=== PATIENT | female | born 1940 | race African-American/Black ===

== ENCOUNTER 2023-04-27 09:49 | Emergency (ER) | payer MEDICARE, SELFPAY ==
--- NOTE | ~2023-04-27 | XR_ITS ---
EXAMINATION: XR CHEST CLINICAL INFORMATION: Productive cough COMPARISON: None available. TECHNIQUE: 2 views of the chest were obtained. FINDINGS: Slight bronchial thickening which may reflect infectious/inflammatory etiology. Elevation the right hemidiaphragm nonspecific. Bibasilar atelectasis. No pneumothorax. Trachea is midline. Cardiac mediastinal silhouette is not enlarged. No large pleural effusion. Degenerative changes of the thoracolumbar spine. Soft tissues are unremarkable. XR/XR chest 2V IMPRESSION: 1. Slight bronchial thickening which may reflect infectious/inflammatory etiology. 2. Elevation the right hemidiaphragm nonspecific. 3. Bibasilar atelectasis.
--- NOTE | 2023-04-27 09:58 | ECG_ITS ---
Test Reason : CHEST PAIN Blood Pressure : / mmHG Vent. Rate : 083 BPM Atrial Rate : 083 BPM P-R Int : 118 ms QRS Dur : 072 ms QT Int : 362 ms P-R-T Axes : 057 -01 024 degrees QTc Int : 425 ms Normal sinus rhythm Normal ECG No previous ECGs available Referred By: Generic ED Physician Electronically Signed By:PABLO SHAFFER MD
[2023-04-27 10:14] VITALS: BP 172/69; PULSE 85; RESP 18; TEMP 36.7; O2SAT 97; BMI 22.5
--- NOTE | 2023-04-27 11:05 | PC.NURSE ---
pt reports having a cold that has not gotten better. pt reports coming home from [place] yesterday where she got medication that has not helped . reports cough and congestion but no pain.
[2023-04-27 12:51] LABS: Influenza A PCR NEGATIVE (Negative); Influenza B PCR NEGATIVE (Negative); Resp Syncy Virus RNA Qual PCR NEGATIVE (Negative); SARS COV2 PCR INHOUSE NEGATIVE (Negative)
--- NOTE | 2023-04-27 13:04 | ED_ITS ---
HPI - General Adult General Chief complaint: General Medical Stated complaint: congested, chest pressure, ear pain Time Seen by Provider: 04/27/23 13:10 Source: patient and RN notes reviewed Mode of arrival: ambulatory Limitations: no limitations History of Present Illness HPI narrative: This is a 82-year-old female, with a history of hypertension, presenting to the emergency department with complaints of sinus congestion, productive cough with yellow sputum, and left ear pain. Patient states that she recently traveled from [place] yesterday. She was seen at a hospital prior to arrival last week and was given an antibiotic. She is unsure what antibiotic she was given, but reports that she did not complete the full course. Patient denies fevers, chills, abdominal pain, nausea, vomiting, or diarrhea. Denies any chest pain or shortness of breath. No sick contacts. No other complaints or concerns at this time. MD complaint: URI Onset (ago): week(s) Radiation: non-radiation Relieving factors: none Exacerbating factors: none Associated symptoms: cough Treatments prior to arrival: none Related Data Previous Rx's Medication Instructions Recorded benzonatate 200 mg capsule 200 mg PO TID PRN cough #14 caps 04/27/23 doxycycline hyclate 100 mg tablet 100 mg PO BID 7 days #14 tabs 04/27/23 Allergies Allergy/AdvReac Type Severity Reaction Status Date / Time Penicillins Allergy Rash Verified 04/27/23 10:11 Review of Systems Review of Systems: Yes all other systems are reviewed and are negative Constitutional: Constitutional: Reports as per [facility] Social History Social History Advance Directives: No Advance Directives Information Provided: No Physical Exam ED Vital Signs: Vital Signs - 24 hr 04/27/23 10:14 04/27/23 13:16 Temperature 98.1 F Pulse Rate 85 82 Respiratory Rate 18 18 Blood Pressure 172/69 H 193/79 H Pulse Oximetry 97 98 Oxygen Delivery Method Room Air Room Air BMI result Body Mass Index 22.5 Const General: cooperative, comfortable and no acute distress Orientation/consciousness: patient oriented x3 Limitations: no limitations HENMT Other: Left TM with purulence, and erythema. TM is intact Auditory canal is non edematous non erythematous. Head: Yes normal to inspection, Yes normocephalic and Yes atraumatic Ears: hearing grossly normal bilaterally General nose exam: Normal external nose present Face and sinus: Yes normal facial exam Mouth: Normal oral and palatal mucosa present, oropharynx normal and moist mucous membranes Throat: Yes posterior oropharynx normal Eyes General: appearance normal, both eyes and all related structures Eyelids: Yes eyelids normal Conjunctivae: conjunctivae normal Sclerae: sclerae normal Pupils: Equal, round and reactive pupils present EOM: EOMs intact bilaterally Neck Neck: Yes normal visual inspection, Yes full ROM and Yes no lymphadenopathy Lymphatic: no lymphadenopathy noted Chest Chest palpation & inspection: normal inspection of the chest Resp Other: Diminished air movement in bilateral bases, otherwise no wheezes, rales, or rhonchi auscultated. Effort & Inspection: normal respiratory effort and able to speak in complete sentences Cardio Rate: regular rate Rhythm: regular rhythm Heart sounds: S1 normal heart sound present and S2 normal heart sound present GI Inspection: Yes normal to inspection Skin General skin exam: no rashes or lesions noted Trauma: no lacerations or abrasions Wounds: no wounds Neuro General: patient oriented x3 and moves all extremities Cranial nerves: Yes Equal, round and reactive pupils present Extrem General: Yes normal to inspection Right upper extremity: normal to inspection Left upper extremity: normal to inspection Right lower extremity: normal to inspection Left lower extremity: normal to inspection Medical Decision Making Medical Decision Making [facility] Narrative: 82-year-old female presenting to the emergency department for evaluation of nasal congestion, productive cough x1 week. On arrival, patient is well appearing in no acute distress. Pt mildly hypertensive, reports that she is unsure if she took her blood pressure medication this morning but will upon discharge - endorsing no chest pain, dizziness, headaches or shortness of breath. Patient is afebrile and all other VSS. Lungs CTAB. Chest xray unremarkable. Symptoms consistent with otitis media and URI. Pt was given zpak last week, unclear whether or not she completed full course. Will cover OM with doxycycline. Given strict return precautions. Patient understands and agrees with plan. Stable for d/c. Differential Diagnosis Differential Diagnoses: The differential diagnosis associated with the presentation includes Pneumonia, URI, OM/OE, bronchitis, viral syndrome, COVID Admission/Observation Consideration of admission/observation: Escalation of care including admission/observation considered Patient would have been admitted to the hospital had her work up had any findings where hospital admission was appropriate and her clinical presentation warranted hospital admission. Lab Data [facility] Lab Attestation statement: I reviewed the patient's lab results. negative viral swabs. Labs: Lab Results 04/27/23 Range/Units 11:54 Influenza Type A (PCR) NEGATIVE (Negative) Influenza Type B (PCR) NEGATIVE (Negative) RSV RNA Qual (PCR) NEGATIVE (Negative) SARS-CoV-2 RNA (RT-PCR) NEGATIVE (Negative) Independent Interpretation I performed an independent interpretation of an: Plain X-Ray Interpretation: No consolidations noted. I agree with radiology report. EKG normal sinus rhythm at a ventricular rate of 83bpm. No ST elevation or depression. VA interval 118. Radiology Impression Discussion of test interpretation with radiology: I have reviewed the radiologist's reading. Radiologist Impression: Attending Dr: Ordering Physician: Generic ED Physician Date of Service: 04/27/23 Procedure(s): XR chest 2V Accession Number(s): [id number] cc: Generic ED Physician~ EXAMINATION: XR CHEST CLINICAL INFORMATION: Productive cough COMPARISON: None available. TECHNIQUE: 2 views of the chest were obtained. FINDINGS: Slight bronchial thickening which may reflect infectious/inflammatory etiology. Elevation the right hemidiaphragm nonspecific. Bibasilar atelectasis. No pneumothorax. Trachea is midline. Cardiac mediastinal silhouette is not enlarged. No large pleural effusion. Degenerative changes of the thoracolumbar spine. Soft tissues are unremarkable. XR/XR chest 2V IMPRESSION: 1.? Slight bronchial thickening which may reflect infectious/inflammatory etiology. 2.? Elevation the right hemidiaphragm nonspecific. 3.? Bibasilar atelectasis. ? Dictated By: Dagmar Webster MD Signed By: <Electronically signed by Dagmar Webster MD in > External Record Review External record reviewed: Inpatient record, Office record, Outpatient record, Prior outpatient labs, Prior outpatient radiology, Primary care record and Outside ED record Discharge Plan Discharge Clinical Impression: Acute upper respiratory infection, Acute left otitis media Patient Disposition: Home, Self-Care Instructions: Ear Infection (ED), Upper Respiratory Infection (ED) Additional Instructions: You tested negative for the flu, RSV, and COVID. Your left ear is infected you likely have a virus causing you to cough. Your x-ray did not show a pneumonia today. Your EKG was reassuring. Please take prescribed medication as directed. Complete the full course even if your feeling better. Drink plenty of fluids get plenty of rest. If any new or worsening symptoms occur including but not limited to chest pain, shortness of breath, please return for re-evaluation. Prescriptions: New benzonatate 200 mg capsule 200 mg PO TID PRN (Reason: cough) Qty: 14 0RF doxycycline hyclate 100 mg tablet 100 mg PO BID 7 Days Qty: 14 0RF Interventions: ED Discharge Assessment Last Done: 04/27/23 14:02 Discharge Date/Time: 04/27/23 14:02
[2023-04-27 13:16] VITALS: BP 193/79; PULSE 82; RESP 18; O2SAT 98
== END 2023-04-27 14:02 | disposition home or self-care (01) ==
PROVIDERS: Physician Assistant Medical; Emergency Provider Student in an Organized Health Care Education/Training Program
DX: J06.9 Acute upper respiratory infection, unspecified (principal); H66.92 Otitis media, unspecified, left ear; Z20.822 Contact with and (suspected) exposure to COVID-19; Z20.828 Contact with and (suspected) exposure to other viral communicable diseases
CPT/HCPCS: 0241U; 71046; 93005; 99283; 99284

== ENCOUNTER → 2023-04-27 09:58 | Outpatient (BNV) | payer MEDICARE, SELFPAY | PROVIDERS: Emergency Provider Student in an Organized Health Care Education/Training Program; Visit Provider Internal Medicine Cardiovascular Disease | DX: R07.9 Chest pain, unspecified (principal) | CPT/HCPCS: 93010 ==